=== PATIENT | female | born 1995 | race Caucasian/White ===

== ENCOUNTER 2021-08-02 19:18 | Emergency (ER) | payer MEDICAID ==
--- NOTE | 2021-08-02 21:14 | NUR ---
PATIENT CALL TO TRIAGE , NO RESPONSE PATIENT LEFT WITHOUT BEING SEEN BY DR. WELLINGTON. NO FURTHER CARE PROVIDED FOR PATIENT.
--- NOTE | 2021-08-02 21:20 | NUR ---
CALLED FOR THE SECOND TIME , NO RESPONSE
--- NOTE | 2021-08-02 21:30 | NUR ---
CALLED FOR THE THIRD TIME NO RESPONSE
[2021-08-03] MEDS ORDERED: IBUP-2213 PO (02:26)
== END 2021-08-02 21:14 | disposition left against medical advice (07) ==
LOC: MED 19:18
DX: J02.9 Acute pharyngitis, unspecified (principal); Z53.21 Procedure and treatment not carried out due to patient leaving prior to being seen by health care provider

== ENCOUNTER 2021-08-02 22:19 | Emergency (ER) | payer SELFPAY ==
[~2021-08-02] VITALS: Ht 162.6 cm; Wt 81.6 kg
[2021-08-02 22:57] VITALS: BP 114/75
[2021-08-03] MEDS ORDERED: IBUP-2213 PO (02:26)
[2021-08-03 02:54] VITALS: BP 114/75
--- NOTE | 2021-08-03 02:54 | NUR ---
Patient discharged with v/s stable. Written and verbal after care instructions given and explained. Patient verbalized understanding. Ambulatory with steady gait. All questions addressed prior to discharge. Advised to follow up with PMD.
== END 2021-08-03 02:54 | disposition home or self-care (01) ==
LOC: MED 22:19
DX: B34.9 Viral infection, unspecified (principal); R09.1 Pleurisy
CPT/HCPCS: 93005; 99283